=== PATIENT | female | born 1980 | race Caucasian/White ===

== ENCOUNTER 2020-12-17 11:52 | Emergency (ER) | payer MEDICARE ==
--- NOTE | 2020-12-17 13:05 | EDM.PDOC ---
ED HPI GENERAL MEDICAL PROBLEM - General Chief Complaint: Gastrointestinal Problem Stated Complaint: NO BOWL MOVEMEMT FOR 7 DAYS Time Seen by Provider: 12/17/20 12:50 Source of Information: Reports: Patient, Other ([employer]) History Limitations: Reports: No Limitations - History of Present Illness INITIAL COMMENTS - FREE TEXT/NARRATIVE: 40-year-old female with cerebral palsy, usually has "large bowel movements on a regular basis" but according to the staff has not had a bowel movement in 7 days. They have given her MiraLAX, prune juice, suppositories, enemas, and other than some leaking of clear liquid stool does not seem to have any results. Patient claims her abdomen is uncomfortable. No vomiting. Onset: Unknown/Unsure Associated Symptoms: Reports: Other (Mild abdominal discomfort) Lower Abdomen Pain Score (Numeric/FACES): 6 - Related Data Allergies Allergy/AdvReac Type Severity Reaction Status Date / Time acetaminophen Allergy Seizure Verified 12/17/20 12:32 Home Meds: Home Meds Calcium Carbonate [Calcium] 0 mg PO ASDIRECTED 06/20/19 [History] Cyclobenzaprine [Flexeril] 0 mg PO ASDIRECTED 06/20/19 [History] DULoxetine [Cymbalta] 0 mg PO ASDIRECTED 06/20/19 [History] Fesoterodine Fumarate [Toviaz] 0 mg PO ASDIRECTED 06/20/19 [History] Fluticasone Propionate [Flovent] 50 mcg MAX ASDIRECTED 06/20/19 [History] Folic Acid 0 mg PO ASDIRECTED 06/20/19 [History] Lubiprostone [Amitiza] 0 mcg PO ASDIRECTED 06/20/19 [History] Metoprolol Succinate 0 mg PO ASDIRECTED 06/20/19 [History] Pantoprazole [ProTONIX Granules] 0 mg PO ASDIRECTED 06/20/19 [History] lamoTRIgine [Lamotrigine] 0 mg PO ASDIRECTED 06/20/19 [History] medroxyPROGESTERone Acetate [Depo-Subq Provera 104] 0 mg IM ASDIRECTED 06/20/19 [History] Past Medical History HEENT History: Reports: Impaired Vision Respiratory History: Reports: Asthma Genitourinary History: Reports: Other (See Below) Other Genitourinary History: has a catheter pump with a baclefen pump. Neurological History: Reports: Cerebral Palsy, Seizure Psychiatric History: Reports: Anxiety, Other (See Below) Other Psychiatric History: mild developmental disability. - Past Surgical History HEENT Surgical History: Reports: Tonsillectomy Female Surgical History: Reports: Other (See Below) Other Female Surgeries/Procedures: neurogenic bladder Neurological Surgical History: Reports: Scoliosis Social & Family History - Tobacco Use Tobacco Use Status *Q: Never Tobacco User - Caffeine Use Caffeine Use: Reports: Coffee - Recreational Drug Use Recreational Drug Use: No ED ROS GENERAL - Review of Systems Review Of Systems: See Below Constitutional: Denies: Fever, Chills Respiratory: Denies: Shortness of Breath GI/Abdominal: Reports: Abdominal Pain, Constipation. Denies: Nausea, Vomiting Neurological: Reports: Other (Cerebral palsy stable) ED EXAM, GI/ABD - Physical Exam Exam: See Below Exam Limited By: No Limitations General Appearance: Alert, No Apparent Distress Respiratory/Chest: No Respiratory Distress GI/Abdominal Exam: Normal Bowel Sounds, Soft, Tender (Generalized mild discomfort with palpation but no focal guarding) Rectal (Female) Exam: Other (Rectal exam reveals some loose stool, no formed stool or impaction, no masses or significant tenderness. Stool that is present is light brown.) Psychiatric: Anxious Skin Exam: Warm, Dry Course - Vital Signs Last Recorded V/S: Last Vital Signs Temp 98.2 F 12/17/20 12:40 Pulse 89 12/17/20 12:40 Resp 18 12/17/20 12:40 BP 142/97 H 12/17/20 12:40 Pulse Ox 100 12/17/20 12:40 - Re-Assessments/Exams Free Text/Narrative Re-Assessment/Exam: 12/17/20 13:05 I am concerned this patient has been overtreated and probably has just persistent liquid stool. A CT of the abdomen and pelvis without contrast to assess the amount of constipation will be obtained. 12/17/20 13:54 CT scan shows normal amount of stool, no obstruction or significant constipation. Recommended going back to regular medications and avoiding laxatives for 2 to 3 days and letting the bowels reset normally. Recheck next week if not improving satisfactorily. Departure - Departure Time of Disposition: 13:58 Disposition: Home, Self-Care 01 Clinical Impression: Constipation Qualifiers: Constipation type: slow transit constipation Qualified Code(s): K59.01 - Slow transit constipation Abdominal pain Qualifiers: Abdominal location: generalized Qualified Code(s): R10.84 - Generalized abdominal pain - Discharge Information Instructions: Constipation, Adult, [id number] Referrals: Ricardo Taylor NP [Primary Care Provider] - Forms: ED Department Discharge Care Plan Goals: Resume regular medications but avoid laxatives for 48 hours. Consider rechecking in 4 or 5 days if not improving satisfactorily. Return sooner if worsening such as increased abdominal pain, nausea and vomiting, or fever. Sepsis Event Note (ED) - Evaluation Sepsis Screening Result: No Definite Risk
--- NOTE | 2020-12-17 13:46 | CT ---
Abdomen Pelvis wo Cont CLINICAL HISTORY: Constipation COMPARISON: None. TECHNIQUE: Axial tomographic images are obtained from the dome of the diaphragm to the pubic symphysis without IV contrast enhancement. No oral contrast was used. The dosage reduction and iterative reconstruction techniques employed. FINDINGS: Patient has had extensive fusion of the thoracolumbar spine and sacrum.The lung bases are clear. The liver shows no mass or biliary dilatation. There are interposed bowel loops over the right superior aspect of the liver. There is a large amount of gas and feces throughout the colon. Small intestinal gas pattern is nonacute. The gallbladder has a normal appearance. The spleen has a normal size and shape. The pancreas shows no mass or inflammatory change. The adrenal glands appear normal bilaterally. The kidneys show no hydronephrosis. There are numerous small nonobstructing left renal calculi. The left kidney appears somewhat atrophic. The ureters have a normal course and contour. Bladder has a normal contour. Uterus has a normal appearance for noncontrast study.. The aorta has a normal caliber. There is no suspicious retroperitoneal adenopathy. IMPRESSION: Moderate fecal retention Small left kidney with multiple nonobstructing renal calculi Extensive thoracolumbar fusion causes moderate streak artifact
== END 2020-12-17 13:58 | disposition home or self-care (01) ==
LOC: JP.ED 11:52
DX: K59.01 Slow transit constipation (principal); J45.909 Unspecified asthma, uncomplicated; G80.9 Cerebral palsy, unspecified; R56.9 Unspecified convulsions; Z88.6 Allergy status to analgesic agent; Z79.899 Other long term (current) drug therapy
CPT/HCPCS: 74176; 74176-26; 99282; 99283-25